=== PATIENT | female | born 1985 | race Caucasian/White ===

== ENCOUNTER 2020-06-23 22:41 | Emergency (ER) | payer OTHER ==
[2020-06-23 23:00] VITALS: BP 112/75; PULSE 78; TEMP 97.9; BMI 25.8
--- OUTSIDE RECORDS SUMMARY | 2020-06-23 23:05 | XMS ---
:1985 Author Organization [facility] Support Name Relationship Address Phone UE Unavailable Unavailable Unavailable SINDHU KRISHNAMURTHY [address] [facility] [address] [place] [address] Re-disclosure Warning The records that you are about to access may contain information from federally- assisted alcohol or drug abuse programs. If such information is present, then the following federally mandated warning applies: This information has been disclosed to you from records protected by federal confidentiality rules (42 CFR part 2). The federal rules prohibit you from making any further disclosure of this information unless further disclosure is expressly permitted by the written consent of the person to whom it pertains or as otherwise permitted by 42 CFR part 2. A general authorization for the release of medical or other information is NOT sufficient for this purpose. The Federal rules restrict any use of the information to criminally investigate or prosecute any alcohol or drug abuse patient.The records that you are about to access may contain highly sensitive health information, the redisclosure of which is protected by Article 27-F of the [facility] Public Health law. If you continue you may haveaccess to information: Regarding HIV / AIDS; Provided by facilities licensed or operated by the [facility] Office of Mental Health; or Provided by the [facility] Office for People With Developmental Disabilities. If such information is present, then the following [facility] mandated warning applies: This information has been disclosed to you from confidential records which are protected by state law. State law prohibits you from making any further disclosure of this information without the specific written consent of the person to whom it pertains, or as otherwise permitted by law. Any unauthorized further disclosure in violation of state law may result in a fine or penitentiary sentence or both. A general authorization for the release of medical or other information is NOT sufficient authorization for further disclosure. Insurance Providers Payer name Policy type Policy ID Covered Covered republican's Policy P angelic / Coverage republican ID relationship to [employer] type miller LYLE [id number] HEALTH CARE HMO/POS/EPO
--- NOTE | 2020-06-23 23:23 | PDOC ---
Attending Attestation - Resident Resident Name: Vilma Andres - ED Attending Attestation I have performed the following: I have examined & evaluated the patient, The case was reviewed & discussed with the resident, I agree w/resident's findings & plan - HPI HPI: 06/24/20 00:36 see resident hpi - Physicial Exam PE: 06/24/20 00:36 see resident exam - Medical Decision Making 06/24/20 00:36 34-year-old female approximately 11 weeks gestational age with spotting Ultrasound shows a live 11-week IUP with small subchorionic hematoma Patient is Rh+ based on previous admission labs Os closed on resident exam Plan for DC with [facility] [employer] follow-up Discharge - Discharge Information Problems reviewed: Yes Clinical Impression/Diagnosis: Threatened , Subchorionic hematoma - Follow up/Referral Referrals: Mai Stephens CNM [Primary Care Provider] - - Patient Discharge Instructions - Post Discharge Activity
--- NOTE | 2020-06-23 23:28 | PDOC ---
History of Present Illness - General Chief Complaint: Vaginal Bleeding Stated Complaint: 9 WEEKS /VAGINAL BLEEDING Time Seen by Provider: 06/23/20 23:07 History Source: Patient Exam Limitations: No Limitations - History of Present Illness Initial Comments: Pt is a 34 yo F, with PMH , who is presenting at ~10 weeks by dates for vaginal spotting tonight. Pt states the blood is bright red and only spotted on the pad. Pt denies any abdominal pain or cramping. Pt denies any recent fevers/chills, headache, vision changes, syncope, chest pain, palpitations, SOB, nausea/vomiting, urinary symptoms, diarrhea/constipation, or leg swelling. Allergies: NKDA OB: Dr. Jose, 2 prior vaginal deliveries uncomplicated Social: Pt denies any cigarette, alcohol, or drug use. Pt denies any recent travel or sick contacts. Surgical: no relevant history. Family: no relevant history. 06/24/20 00:46 Past History - Travel History Traveled outside of the country in the last 30 days: No Close contact w/someone who was outside of country & ill: No - Medical History Allergies/Adverse Reactions: Allergies Allergy/AdvReac Type Severity Reaction Status Date / Time No Known Drug Allergies Allergy Verified 05/19/18 12:20 Home Medications: Ambulatory Orders Pnv No.95/Ferrous Fum/Folic AC [ Vitamin Tablet] 1 each PO DAILY 05/19/18 Ibuprofen [Motrin Ib] 200 mg PO BID PRN #30 tablet 05/20/18 Asthma: No Cancer: No Cardiac Disorders: No Diabetes: No HTN: No Seizures: No Thyroid Disease: No - Reproductive History Is Patient Now?: Yes - Psycho-Social/Smoking History Smoking History: Never smoked Have you smoked in the past 12 months: No - Substance Abuse Hx (Audit-C & DAST Scrn) How often the patient has a drink containing alcohol: Never Score: In Men: 4 or > Positive; In Women: 3 or > Positive: 0 Screen Result (Pos requires Nsg. Audit-10AR): Negative Review of Systems - Review of Systems Able to Perform ROS?: Yes Is the patient limited Norwegian proficient: No Constitutional: Yes: Weight Stable. No: Chills, Diaphoresis, Fever, Loss of Appetite, Malaise, Weakness HEENTM: No: Recent change in vision, Nose Congestion, Throat Pain, Throat Swelling, Difficulty Swallowing Respiratory: No: Cough, Orthopnea, Shortness of Breath Cardiac (ROS): No: Chest Pain, Edema, Irregular Heart Rate, Lightheadedness, Palpitations, Syncope, Chest Tightness ABD/GI: No: Constipated, Diarrhea, Nausea, Poor Appetite, Poor Fluid Intake, Vomiting : Yes: Frequency. No: Burning, Dysuria, Hematuria, Pain, Urgency Musculoskeletal: No: Back Pain Integumentary: No: Rash Neurological: No: Headache, Numbness, Weakness, Unsteady Gait, Dizziness Psychiatric: No: Sleep Pattern Change, Change in Appetite Endocrine: No: Increased Urine, Change in Weight Hematologic/Lymphatic: No: Anemia, Blood Clots, Easy Bleeding, Easy Bruising All Other Systems: Reviewed and Negative *Physical Exam - Vital Signs Last Vital Signs Temp Pulse Resp BP Pulse Ox 97.9 F 78 20 112/75 100 06/23/20 22:57 06/23/20 22:57 06/23/20 22:57 06/23/20 22:57 06/23/20 22:57 - Physical Exam Vitals stable, pt afebrile. Pt in NAD, normal body habitus. Fundal height appropriate for gestational age. Pt alert and oriented x3. bell staff generally intact, muscular strength and sensation intact. No midline spinal tenderness, step-offs, or crepitus. Head normocephalic, atraumatic. Eyes PERRLA, EOMI. Oropharynx without erythema or exudates, no LAD b/l. No nasal congestion. Hearing intact. Clear heart sounds, S1/S2, no JVD, b/l pedal edema, or heart murmur. Clear lung sounds, no respiratory distress, wheezes, crackles, or accessory muscle use. No abdominal or CVA tenderness to palpation, no rebound, no guarding. Abdomen soft, non-distended, and with normoactive bowel sounds. Cervix closed, small amount of blood in vaginal canal. No CMT or adnexal TTP. Skin without jaundice or rash. 06/24/20 01:00 ED Treatment Course - RADIOLOGY Radiology Studies Ordered: Category Date Time Status <14WKS US [US] Stat Ultrasound 06/23/20 23:03 Ordered Medical Decision Making - Medical Decision Making Pt was seen at bedside, also will be seen by attending Dr. Trigenis. Pt presenting with vaginal spotting concerning for threatened vs inevitable . Cervix closed on exam, no significant bleeding. US showed IUP at 11 weeks 3 days with FHR 154. Small subchorionic hematoma up to 1.6 cm max. Pts blood type O+, no need for rhogham. Pt dispo to home with f/u OB, pending UA 06/24/20 01:06 Pt left ER prior to receiving discharge papers and UA results. Placed call back for urine culture. 06/24/20 01:34 Discharge - Discharge Information Problems reviewed: Yes Clinical Impression/Diagnosis: Threatened Subchorionic hematoma Qualifiers: Fetus number: fetus 3 of multiple gestation Trimester: first trimester Qualified Code(s): O41.8X13 - Other specified disorders of amniotic fluid and membranes, first trimester, fetus 3 Condition: Good Disposition: HOME - Admission No - Follow up/Referral Referrals: Mai Stephens CNM [Primary Care Provider] - Nicholas Brothers MD [Staff Physician] - - Patient Discharge Instructions Patient Printed Discharge Instructions: DI for Threatened , DI for Vaginal Bleeding During Additional Instructions: You were seen in the ER today for vaginal bleeding. The lab will call you if your urine is abnormal or has an infection. Please follow-up with your OB doctor within 1-2 days to discuss your visit and make sure your symptoms have improved. Please return to the ER if you have any worsening bleeding (soaking through 1-2 pads per hour), development of fevers or chills, loss of consciousness, inability to tolerate food or fluids, or any other concerns. - Post Discharge Activity
[2020-06-24 01:47] LABS: EPI CELLS 3 /uL (0-25.1); HYALINE CASTS 0 /uL (0-3.1); PH,URINE 5.5 (5.0-8.0); URINE APPEARANCE CLEAR; URINE BACTERIA 108 /uL (0-1359); URINE BILIRUBIN NEGATIVE (NEGATIVE); URINE COLOR YELLOW; URINE GLUCOSE (UA) NEGATIVE (NEGATIVE); URINE KETONE NEGATIVE (NEGATIVE); URINE LEUK ESTERASE NEGATIVE (NEGATIVE); URINE NITRITE NEGATIVE (NEGATIVE); URINE PROTEIN NEGATIVE (NEGATIVE); URINE RBC 16 /uL (0-23.9); URINE UROBILINOGEN 0.2 mg/dL (0.2-1.0); URINE WBC 8 /uL (0-25.8)
== END 2020-06-24 01:30 | disposition home or self-care (01) ==
LOC: JER 22:41
DX: O20.0 Threatened abortion (principal)
CPT/HCPCS: 76801-TC; 81003; 87086; 99284-25

== ENCOUNTER 2020-12-30 05:00 | Inpatient (IN) | payer OTHER ==
[2020-12-30] MEDS ORDERED: BUTORPHANOL TARTRATE 1 MG/ML VIAL IVPB ONE (06:35)
[2020-12-30] MEDS ORDERED: PROMETHAZINE HCL 25 MG/1 ML VIAL IVPUSH ONE (06:35)
[2020-12-30] MEDS ORDERED: DEXTROSE 5%-LACTATED RINGERS 1,000 ML IV SCH (06:45)
[2020-12-30 06:58] VITALS: BMI 27.8
[2020-12-30 07:11] LABS: BASO % 0.2 % (0-2.0); EOS % 0.1 % (0-4.5); HEMATOCRIT 41.1 % (32.4-45.2); HEMOGLOBIN 13.8 GM/dL (10.7-15.3); LYMPH % 21.8 % (8-40); MCHC 33.6 g/dl (32.0-36.0); MEAN CELL VOLUME 101.3 fl (80-96); MEAN PLT VOLUME 12.1 fl (7.5-11.1); MONO % 7.8 % (3.8-10.2); NEUT % 70.1 % (42.8-82.8); PLATELET COUNT 154 K/MM3 (134-434); RBC 4.06 M/mm3 (3.60-5.2); WHITE BLOOD COUNT 9.7 K/mm3 (4.0-10.0)
[2020-12-30 07:13] LABS: INR 0.84 (0.83-1.09); PROTHROMBIN TIME (PATIENT) 10.2 SEC (9.7-13.0)
[2020-12-30 07:16] LABS: ACTIVATED PTT 27.7 SECONDS (25.2-36.5)
[2020-12-30] MEDS ORDERED: OXYTOCIN 20 UNITS in 0.9% NS 20 UNIT/1,000 ML INFUS.BAG IV ONE ×2 (07:20→08:40)
[2020-12-30 07:26] LABS: POTASSIUM 4.2 mmol/L (3.5-5.1)
[2020-12-30 07:27] LABS: BLOOD UREA NITROGEN 8.8 mg/dL (7-18); CALCIUM 8.8 mg/dL (8.5-10.1)
[2020-12-30 07:31] LABS: CREATININE 0.7 mg/dL (0.55-1.3)
[2020-12-30] MEDS: OXYTOCIN 20 UNITS in 0.9% NS 20 UNIT/1,000 ML INFUS.BAG IV SCH ×2 (07:31→08:44)
[2020-12-30] MEDS ORDERED: METHYLERGONOVINE MALEATE 0.2 MG/1 ML AMP IM PRN (08:36)
[2020-12-30] MEDS ORDERED: ACETAMINOPHEN 325 MG TABLET (FP) PO PRN (08:36)
[2020-12-30] MEDS ORDERED: BENZOCAINE 20% 57 GM BOTTLE TP PRN (08:36)
[2020-12-30] MEDS ORDERED: BISACODYL 10 MG SUPP.RECT RC PRN (08:36)
[2020-12-30] MEDS ORDERED: WITCH HAZEL 50% (TUCKS) 40 PAD/JAR PAD TP PRN (08:36)
[2020-12-30] MEDS ORDERED: BENZOCAINE 28 GM HEMORRHOIDAL OINTMENT TP PRN (08:36)
[2020-12-30] MEDS ORDERED: IBUPROFEN 600 MG TABLET (FP) PO PRN (08:36)
[2020-12-30 09:04] LABS: CORD BASE EXCESS -2.5 mmol/L (0-2); CORD HCO3 24.7 mmHg (20-29); CORD PCO2 52.7 mmHg (30-78); CORD pH 7.289 (7.14-7.44)
[2020-12-30 09:44] LABS: HIV INTERPRETATION NEGATIVE (NEGATIVE)
[2020-12-30] MEDS: PRENATAL VITAMINS W/ FOLIC ACID TABLET (FP) PO SCH (11:01)
[2020-12-30] MEDS: FERROUS SO4 325 MG TABLET (FP) PO SCH (16:31)
[2020-12-31 08:50] LABS: BASO % 0.4 % (0-2.0); EOS % 0.2 % (0-4.5); HEMATOCRIT 33.6 % (32.4-45.2); HEMOGLOBIN 11.5 GM/dL (10.7-15.3); LYMPH % 19.3 % (8-40); MCH 34.1 pg (25.7-33.7); MCHC 34.3 g/dl (32.0-36.0); MEAN CELL VOLUME 99.5 fl (80-96); MEAN PLT VOLUME 11.1 fl (7.5-11.1); MONO % 5.9 % (3.8-10.2); NEUT % 74.2 % (42.8-82.8); PLATELET COUNT 132 K/MM3 (134-434); RBC 3.38 M/mm3 (3.60-5.2); RDW 13.1 % (11.6-15.6); WHITE BLOOD COUNT 11.3 K/mm3 (4.0-10.0)
[2020-12-31] MEDS: FERROUS SO4 325 MG TABLET (FP) PO SCH (09:17)
[2020-12-31] MEDS: PRENATAL VITAMINS W/ FOLIC ACID TABLET (FP) PO SCH (09:17)
[2020-12-31] MEDS ORDERED: SENNOSIDES/DOCUSATE COMBO (SENNA PLUS) TABLET (UD) PO PRN (22:00)
[2021-01-01] MEDS: FERROUS SO4 325 MG TABLET (FP) PO SCH ×2 (07:55→10:19)
[2021-01-01] MEDS: PRENATAL VITAMINS W/ FOLIC ACID TABLET (FP) PO SCH (10:19)
[2021-01-01 13:11] VITALS: BP 117/78; PULSE 91; TEMP 97.3
== END 2021-01-01 12:30 | disposition home or self-care (01) | DRG 807 ==
LOC: JDEL 05:00 → JLDR 06:20 → J3W 09:50
PROVIDERS: ADMIT Obstetrics & Gynecology; ATTEND Obstetrics & Gynecology
PROC: 10E0XZZ Delivery of Products of Conception, External Approach (ICD-10-PCS; principal; 2020-12-30)
PROC: 0KQM0ZZ Repair Perineum Muscle, Open Approach (ICD-10-PCS; 2020-12-30)
DX: O70.1 Second degree perineal laceration during delivery (principal); Z37.0 Single live birth; Z3A.38 38 weeks gestation of pregnancy
CPT/HCPCS: 36415; 36600; 59409; 80048; 82803; 85025; 85610; 85730; 86780; 86850; 86900; 86901; 87389; C9803; U0003; U0005